=== PATIENT | female | born 1990 | race African-American/Black ===

== ENCOUNTER 2017-11-21 03:14 | Emergency (ER) | payer SELFPAY ==
[~2017-11-21] VITALS: Ht 165.1 cm; Wt 90.0 kg
[2017-11-21] MEDS ORDERED: SODIUM CHLORIDE 0.9% 1,000 ML IV ONE (06:30)
[2017-11-21] MEDS ORDERED: ONDANSETRON HCL 4MG/2ML VIAL IV STA (06:30)
[2017-11-21] MEDS ORDERED: IBUPROFEN 600MG TABLET PO ONE (06:30)
[2017-11-21 06:58] LABS: BASOPHILS % 0.4 % (0.0-2.0); EOSINOPHILS % 0.3 % (0.0-5.0); HEMATOCRIT. 38.4 % (36.0-48.0); HEMOGLOBIN. 12.7 g/dL (12.0-16.0); LYMPHOCYTES % 8.9 % (20.0-50.0); MEAN CORPUSCULAR HEMOGLOBIN 27.1 pg (28.0-32.0); MEAN PLATELET VOLUME 10.1 fl (7.4-10.4); MONOCYTES % 7.7 % (2.0-8.0); NEUTROPHILS % 82.7 % (40.0-76.0); PLATELET 149 x1000/uL (130-400); RED BLOOD CELL COUNT 4.69 mill/uL (4.2-5.4); RED CELL DISTRIBUTION WIDTH 13.7 % (11.6-14.6)
[2017-11-21 07:25] LABS: CARBON DIOXIDE 25 mEq/L (21-32); CHLORIDE 103 mEq/L (98-107)
[2017-11-21 08:13] LABS: CLARITY URINE CLOUDY (CLEAR); COLOR URINE YELLOW (YELLOW); KETONES URINE 2+ (NEGATIVE); LEUKOCYTE ESTERASE URINE 1+ (NEGATIVE); NITRITE URINE NEGATIVE (NEGATIVE); OCCULT BLOOD URINE TRACE (NEGATIVE); PH URINE 5.5 (4.5-8.0); PROTEIN URINE 1+ (NEGATIVE); SPECIFIC GRAVITY URINE 1.025 (1.005-1.030)
[2017-11-21 10:47] VITALS: BP 118/86
== END 2017-11-21 11:42 | disposition home or self-care (01) ==
LOC: ER 03:14
DX: J10.1 Influenza due to other identified influenza virus with other respiratory manifestations (principal); M60.9 Myositis, unspecified; M79.1 Myalgia; R50.81 Fever presenting with conditions classified elsewhere
CPT/HCPCS: 36415; 71045; 80053; 81001; 85025; 87804; 93005; 96361; 96374; 99285; J2405; J7030; Z7610